=== PATIENT | female | born 1950 | race Caucasian/White ===

== ENCOUNTER 2019-04-24 10:02 | Day surgery (SDC) | payer MEDICARE ==
[~2019-04-24] VITALS: Ht 157.5 cm; Wt 72.7 kg
[2019-04-24 10:26] VITALS: BP 171/86
[2019-04-24] MEDS ORDERED: LEVO75TA5 PO (10:40)
[2019-04-24] MEDS ORDERED: ATEN25TA PO (10:41)
[2019-04-24] MEDS ORDERED: FENTANYL PF 100 MCG/2ML ONE (13:12)
[2019-04-24] MEDS ORDERED: MIDAZOLAM 1 MG/ML, 5ML ONE (13:12)
[2019-04-24] MEDS ORDERED: BIVALIRUDIN 250 MG ONE (13:13)
[2019-04-24] MEDS ORDERED: VERAPAMIL 2.5 MG/ML, 2ML ONE (13:13)
[2019-04-24] MEDS ORDERED: NITROGLYCERIN 5 MG/ML, 10ML ONE (13:13)
[2019-04-24] MEDS ORDERED: LIDOCAINE 2%, 20ML ONE (13:13)
[2019-04-24] MEDS ORDERED: HEPARIN 1,000 UNITS/ML, 10ML ONE (13:13)
== END 2019-04-24 15:39 | disposition home or self-care (01) ==
LOC: CACL 10:02
PROVIDERS: ATTEND Internal Medicine Cardiovascular Disease
DX: I49.3 Ventricular premature depolarization (principal); I20.0 Unstable angina; E78.5 Hyperlipidemia, unspecified; E03.9 Hypothyroidism, unspecified; E55.9 Vitamin D deficiency, unspecified; Z79.890 Hormone replacement therapy; Z79.899 Other long term (current) drug therapy; Z98.890 Other specified postprocedural states
CPT/HCPCS: 93458; 99156; C1769; C1894; J1644; J2250; J3010; Q9967; J0583